=== PATIENT | female | born 1955 | race Caucasian/White ===

== ENCOUNTER 2016-04-30 09:45 | Inpatient (IN) | payer BC ==
[~2016-04-30] VITALS: Ht 170.2 cm; Wt 79.0 kg
[2016-05-01] MEDS ORDERED: NEXI20CA PO (15:53)
[2016-05-01] MEDS ORDERED: CALC500T42 PO (16:11)
[2016-05-01] MEDS ORDERED: VITATAB11 PO (16:11)
[2016-05-01] MEDS ORDERED: TRAZ50TA12 PO (16:11)
[2016-05-01] MEDS ORDERED: MAGN250T2 PO (16:11)
[2016-05-01] MEDS ORDERED: MULT-135 PO (16:11)
[2016-05-01] MEDS ORDERED: [UNRECOGNIZED DRUG - OTHER] PO (16:11)
--- NOTE | 2016-05-04 09:09 | MH ---
cc: ANTONIO SINGH MD DATE OF ADMISSION: 05/06/2016 ADMITTING DIAGNOSIS Osteoarthritis of the right hip, pain right hip, gait disturbance. HISTORY OF PRESENT ILLNESS The patient is a 60-year-old white female who has experienced at least a one-year history of pain involving her right hip. She had originally noted the abrupt onset of pain generalized about the hip and groin area within the preceding year unrelated to injury or unusual activity. During this interval of time, she had conformed to conservative management utilizing Advil and applying heat neither of which afforded her any significant improvement of her symptoms. She became progressively more symptomatic with pain that began to interfere with all weightbearing activities. She presented to the undersigned physician in May of this past year and at that time her x-ray studies revealed obvious degenerative changes with pronounced narrowing about the superior aspect of the joint for which findings and treatment options were reviewed. The patient elected to continue with conservative management at that time. She was prescribed tramadol for pain relief and thereafter followed on an outpatient basis. Additional medications later included diclofenac during which time the patient noted residual symptoms about her right hip for which she was having difficulty conforming to ambulatory activities. She returned to the office in November of this past year reporting that she had been kayaking as part of her exercise activities that tended to aggravate her hip symptoms. She was treated with a Kenalog injection and a Medrol Dosepak but unfortunately became increasingly more symptomatic with pain with the passage of time. She returned to the office more recently indicating she was obviously incapacitated with regards to all forms of weightbearing activities. Her x-ray studies revealed severe degenerative changes with subtotal obliteration of the joint space. Findings and treatment options were reviewed. The pros and cons of continuing with conservative management versus operative intervention that would involve a total hip arthroplasty were outlined in detail. Emphasis was made regarding the fact that the decision to proceed with surgery would be left entirely to the patient's discretion. She readily admitted that she had progressed to a point in time where she was ready to proceed with such treatment, and in compliance with her wishes she is currently being admitted in order that total hip replacement be accomplished. PAST MEDICAL HISTORY Her past medical history, hospitalizations and surgeries have included previous left total hip arthroplasty, tonsillectomy, excision of uterine fibroids, and surgical stabilization of the left ankle fracture. The patient denies active medical illnesses. MEDICATIONS Her current medications include - 1. Tramadol for pain relief. 2. Trazodone 50 mg at bedtime. 3. A multivitamin tablet. 4. B complex. 5. Advil. 6. Calcium 500 mg twice a day. 7. Magnesium 250 mg twice a day. 8. Colax an herbal supplement that she takes three times daily. ALLERGIES THE PATIENT DENIES ANY KNOWN DRUG ALLERGIES. REVIEW OF SYSTEMS She has contact lenses. Denies headache, seizure or syncope. No sinus congestion or epistaxis. Auditory acuity intact. No tinnitus. No bleeding gums or dysphagia. Denies cough, shortness of breath, upper respiratory infection, pneumonia or tuberculosis. No angina or heart disease. Her appetite is good. Bowel movements are regular. No hepatitis, gallbladder disease, ulcers or hemorrhoids. No urinary tract infection. No kidney stones. Fracture of the left ankle as described. No psychiatric illness. Her remaining review of systems is unremarkable and noncontributory. FAMILY HISTORY The patient has been for five years. She has no children. Her family history is otherwise positive for hypertension, diabetes and heart disease. SOCIAL HISTORY The patient completed a college education. She is employed in the [employer] industry. She denies active use of tobacco for the past 30 years but had been approximately a 15 pack-year user prior to that time. Ethanol consumption on a social basis. PHYSICAL EXAMINATION Height 5 feet 7 inches. Weight 180 pounds. GENERAL: An alert, oriented and responsive 60-year-old white female who sits quietly upon the examination table with mild distress as related to her right hip. HEAD, EARS, EYES, NOSE AND THROAT: Pupils are equally round and reactive to light. Extraocular movements full. Sclerae are clear. External nares clear. External auditory canals clear. Dental intact. Mucous membranes pink and moist. Pharynx clear. NECK: Supple. Active range of motion without appreciable pain. Carotid pulse palpable bilaterally. Trachea midline. Thyroid without enlargement. LUNGS: Clear to auscultation and percussion. No CVA tenderness. No discomfort throughout the dorsolumbar spine. HEART: Regular rhythm. No murmur or gallop. ABDOMEN: Abdomen is soft, nontender. Bowel sounds present. PELVIC: Per primary care physician. EXTREMITIES: Right hip: There is no localizing tenderness to palpation. There is restricted mobility of the hip joint in all ranges assessed with pain at the extremes of motion. Straight-leg raising is negative at 80 degrees. Erik sign is positive. Pronounced antalgic gait. NEUROLOGIC: Cranial nerves II through XII grossly intact. IMPRESSION Severe osteoarthritis of the right hip, pain right hip, gait disturbance. PLAN Right total hip arthroplasty. The nature of the planned surgical procedure, the potential complications and risks associated, the expectations of surgery and the consent form were thoroughly reviewed with the patient prior to her admission to the hospital. Radha has indicated her full understanding regarding all of the above and given consent to proceed with treatment as outlined. Medical evaluation and clearance for surgery will be completed by her primary care physician Dr. Joseph Saenz. MD GERALDO Manning/BJF /5:11 PM /9:08 AM
[2016-05-06] MEDS ORDERED: POVIDONE IODINE 7.5% SCRUB 118 ML BOTTLE TOP SCH (05:45)
[2016-05-06] MEDS ORDERED: ceFAZolin 2 GM PREMIX 50 ML IV SCH (05:45)
[2016-05-06] MEDS ORDERED: METOPROLOL TARTRATE 25 MG TAB PO PRN (05:45)
[2016-05-06] MEDS ORDERED: SODIUM CHLORID 0.9% 500 ML IV SCH (05:45)
[2016-05-06] MEDS ORDERED: INSULIN HUMAN REGULAR 1,000 UNITS/10 ML VIAL SQ PRN (05:45)
[2016-05-06] MEDS ORDERED: LACTATED RINGER'S 1000 ML IV SCH (05:45)
[2016-05-06] MEDS ORDERED: TRANEXAMIC ACID 1 GM POST-OP IV SCH ×2 (05:45)
[2016-05-06] MEDS ORDERED: TRANEXAMIC ACID 1 GM PRIOR TO PROCEDURE IV SCH ×2 (05:45)
[2016-05-06] MEDS ORDERED: IBUP200T2 PO (05:58)
[2016-05-06] MEDS ORDERED: TRAM50TA PO (05:58)
[2016-05-06] MEDS ORDERED: ACET-703 PO (05:58)
[2016-05-06] MEDS ORDERED: CALC1TAB12 PO (05:58)
[2016-05-06 05:59] VITALS: BP 143/90; PULSE 80; RESP 20; TEMP 98.7; O2SAT 96
--- NOTE | 2016-05-06 06:23 | RADRPT ---
EXAM DATE/TIME: 05/06/2016 05:47 [facility] COMPARISON: No previous studies available for comparison. INDICATIONS : Evaluate for pneumonia, pneumothorax, or any communicable disease. Pre op right hip. MEDICAL HISTORY : None. SURGICAL HISTORY : None. ENCOUNTER: Initial ACUITY: 1 day PAIN SCORE: 0/10 LOCATION: Bilateral chest FINDINGS: A single view of the chest demonstrates the lungs to be symmetrically aerated without evidence of mas s, infiltrate or effusion. The cardiomediastinal contours are unremarkable. Osseous structures are intact. CONCLUSION: No acute disease. Compa Alvarez MD on May 06, 2016 at 6:22 Board Certified Radiologist. This report was verified electronically.
[2016-05-06] MEDS ORDERED: ceFAZolin INJ 1,000 MG VIAL ONE (06:31)
[2016-05-06] MEDS ORDERED: HYDROmorphone HCL PF 2 MG/ML VIAL ONE (08:36)
[2016-05-06] MEDS ORDERED: fentaNYL CITRATE 250 MCG/5 ML AMP ONE (09:40)
[2016-05-06] MEDS ORDERED: SODIUM CHLORIDE 0.9% FLUSH 5 ML FLUSH IVF PRN (09:45)
[2016-05-06] MEDS ORDERED: ACETAMINOPHEN/HYDROcodone 325 MG/5 MG TAB PO PRN (09:45)
[2016-05-06] MEDS ORDERED: ZOLPIDEM TARTRATE 5 MG TAB PO PRN (09:45)
[2016-05-06] MEDS ORDERED: Post-op Orders (for Pharmacy) MISC XX ONE (09:45)
[2016-05-06] MEDS ORDERED: BISACODYL 10 MG SUPP PR PRN (09:45)
[2016-05-06] MEDS ORDERED: diphenhydrAMINE HCL 25 MG CAP PO PRN (09:45)
[2016-05-06] MEDS ORDERED: NALOXONE HCL 0.4 MG/ML AMP IV PRN (09:45)
[2016-05-06] MEDS ORDERED: ACETAMINOPHEN 325 MG TAB PO PRN (09:45)
[2016-05-06] MEDS ORDERED: PROMETHAZINE INJ 25 MG/ML VIAL IM PRN (09:45)
[2016-05-06] MEDS ORDERED: ONDANSETRON HCL 4 MG/2 ML VIAL IVP PRN (09:45)
[2016-05-06] MEDS ORDERED: DOCUSATE SODIUM 100 MG CAP PO PRN (09:45)
[2016-05-06] MEDS ORDERED: TRANEXAMIC ACID INJ 1,000 MG in SODIUM CHLORIDE 0.9% INJ 100 ML IV SCH (09:45)
[2016-05-06] MEDS ORDERED: *morphine SULFATE 8 MG/ML PERIprocedure ONLY ONE ×2 (09:53→10:08)
[2016-05-06] MEDS: DEXT 5%-NACL 0.45% 1000 ML INJ 1,000 ML IV SCH ×2 (11:00→17:53)
--- NOTE | 2016-05-06 11:03 | RADRPT ---
EXAM DATE/TIME: 05/06/2016 10:00 [facility] COMPARISON: No previous studies available for comparison. INDICATIONS: Post op right hip surgery. MEDICAL HISTORY: None. SURGICAL HISTORY: None. ENCOUNTER: Initial ACUITY: 1 day PAIN SCORE: 10/10 LOCATION: Right hip FINDINGS: The patient is status post right total hip arthroplasty with prosthesis in good position. CONCLUSION: Status post right total hip arthroplasty with prosthesis in good position. lEroy Abel MD on May 06, 2016 at 10:49 Board Certified Radiologist. This report was verified electronically.
[2016-05-06] MEDS: MORPHINE SULFATE 30 MG/30 ML PCA IV SCH ×3 (11:34→21:11)
--- NOTE | 2016-05-06 11:42 | MP ---
cc: ANTONIO HERNANDEZ DATE OF SURGERY 05/06/2016 PREOPERATIVE DIAGNOSIS Osteoarthritis of the right hip, pain right hip, gait disturbance. POSTOPERATIVE DIAGNOSIS Osteoarthritis of the right hip, pain right hip, gait disturbance. PROCEDURE Right total hip arthroplasty SURGEON Antonio Hernandez MD ANESTHESIA General endotracheal INDICATIONS The patient is a 60-year-old white female who experienced at least a one-year history of pain involving her right hip. She had noted the abrupt onset of generalized pain involving the hip and groin area within the preceding year unrelated to injury or unusual activity. During this interval of time, she had conformed to conservative management utilizing Advil and applying heat neither of which afforded her any significant improvement. She became progressively more symptomatic with pain that began to interfere with all weightbearing activities. She presented to the undersigned physician in May of this past year and at that time x-ray studies revealed obvious degenerative changes with pronounced narrowing about the superior aspect of the joint for which findings and treatment options were reviewed. At that time, the patient elected to continue with conservative management. She was prescribed Tramadol for pain relief and thereafter followed on an outpatient basis. Additional medications included Diclofenac during which time the patient did experience residual pain about her right hip for which she was having difficulty conforming to all ambulatory activities. She was trying to exercise under her own supervision. She returned to the office in November of this past year reporting that she had been kayaking as part of her exercise program, but it tended to aggravated her symptoms. She was treated with a Kenalog injection and a Medrol Dosepak, but unfortunately became increasingly more symptomatic with pain. She returned to the office in the recent past indicating that she was obviously incapacitated with all forms of weightbearing activities. Her current x-ray studies revealed severe degenerative changes with subtotal obliteration of the joint space. Findings and treatment options were reviewed. The pros and cons of continuing with additional conservative management versus proceeding with operative intervention involving total hip arthroplasty were outlined in detail. Emphasis was made regarding the fact that the decision to proceed with surgery would be left entirely to the patient's discretion. She readily admitted that her symptoms had progressed to a point in time where she was ready to proceed with such treatment and in compliance with her wishes, she was scheduled for admission at this time in order that total hip replacement be completed. FORMAT Following the induction of satisfactory general anesthesia by endotracheal intubation as completed per the Department of Anesthesia, the patient was positioned upon the operating table in a left lateral decubitus fashion. The right hip and lower extremity proper were isolated with a U drape thereafter being prepped with Betadine solution and draped into a sterile field in the routine manner. Prior to initiation of the actual procedure the standard time-out protocol was completed. All parameters were appropriately addressed and confirmed by operating room personnel. A standard posterolateral approach to the hip was initiated through a sharp skin incision and developed underlying subcutaneous tissue with hemostasis maintained by electrocautery. By deepening dissection, the fascia overlying the gluteus musculature was exposed. The underlying gluteal fibers were divided with the Bovie on cutting current. Progressive dissection facilitated exposure of the short external rotator structures. The pyriformis tendon was utilized as an anatomical landmark and division of these structures was completed in a superior to inferior orientation and reflected medially exposing the posterior capsule. The sciatic nerve was protected. An L-shaped capsulotomy was accomplished in which a posterior dislocation of the femoral head was completed. Examination revealed severe degenerative changes with marginal hypertrophic bony reaction and complete erosion of articular cartilage from the weightbearing surface of the femoral head with underlying subchondral bone exposed. The femoral template was positioned for alignment orientation. The neck was scored and thereafter divided with power saw, the amputated segment being passed to the back table as surgical specimen. Attention was initially directed to the proximal femur. Cancellus bone was harvested. The tapered reamer was inserted for alignment orientation. Sequential rasping and broaching was accomplished from 7 through 10 mm, the 10 mm stem was determined to be a favorable fit. The trial components being removed, attention was redirected to the acetabulum. The labrum and reactive soft tissue were sharply excised. Progressive reaming was accomplished from 48-54 mm. The 54 trial shell was positioned and determined to be satisfactory. With all trial components being removed, the wound was copiously irrigated with pulsating antibiotic solution. Hemostasis maintained by electrocautery. The acetabulum was dried and thereafter a 54 mm ring lock acetabular shell was firmly seated in approximately 45 degrees inclination to the horizontal and slight anteversion. A single 25 mm 6.5 cancellous screw was inserted superiorly to augment fixation. The permanent high wall acetabular liner was affixed to the acetabular shell and thereafter the size 10 trial femoral broach was repositioned and a trial reduction followed utilizing both a -6 and -3 mm neck length adapter. The -3 sizing was determined to be the more favorable fit. The hip was flexed to 90 degrees and internally rotated to 45 degrees with stability of the hip joint being maintained. Open dislocation completed. Trial femoral components being removed, the canal was thoroughly irrigated, not dried and thereafter a size 10 standard femoral stem Echo biometric configuration with collarless configuration was firmly seated into the canal and to this a 36 mm ceramic head with -3 mm neck length adapter was attached and open reduction completed. A repeat range of motion noted stability as previously described. Final irrigation was accomplished. Hemostasis maintained by electrocautery. The wound was thoroughly irrigated with pulsating antibiotic solution. Hemostasis being maintained by electrocautery. The posterior capsule was repaired with 0 Vicryl suture. Pyriformis tendon and short external rotator structures were reapproximated in a similar manner. Hemovac drain tubes were inserted through superior stab wounds. The fascia of the gluteus musculature was reapproximated with a running 0 Vicryl suture. The remaining portion of the wound was closed in layers in the routine manner. Skin margins being reapproximated with a running subcuticular 3-0 Vicryl suture over which Steri-Strips were applied. Xeroform gauze and a bulky dry sterile dressing were placed. The patient was repositioned into a supine orientation where an abduction splint was attached. Anesthesia was discontinued. She was thereafter transferred to a hospital bed and returned to the recovery room in satisfactory condition having tolerated her operative procedure well. Estimated blood loss was approximately 300 cc as determined per anesthesia. All implants were of the [employer] nanoscience technician. MD GERALDO Manning/ONEYDA /9:32 AM /11:22 AM
[2016-05-06 11:50] VITALS: BP 132/67; PULSE 80; RESP 16; TEMP 96.7; O2SAT 96
[2016-05-06 12:00] VITALS: BP 106/56; PULSE 71; RESP 17; TEMP 95.9; O2SAT 97
[2016-05-06] MEDS ORDERED: ACETAMINOPHEN 1000 MG/100 ML VIAL IV ONE (12:00)
[2016-05-06] MEDS ORDERED: LACTATED RINGER'S 1000 ML INJ 1,000 ML IV ONE (12:00)
[2016-05-06] MEDS ORDERED: NEOSTIGMINE 3 MG/3 ML SYR IV ONE (12:00)
[2016-05-06] MEDS ORDERED: PROPOFOL 200 MG/20 ML AMP IV ONE (12:00)
[2016-05-06] MEDS ORDERED: ePHEDrine/NS 50 MG/5 ML SYR IV ONE (12:00)
[2016-05-06] MEDS ORDERED: ONDANSETRON HCL 4 MG/2 ML VIAL IV PUSH ONE (12:00)
[2016-05-06] MEDS ORDERED: DO NOT ADM ANY ANTICOAGULANT DRUGS XX PRN (12:15)
[2016-05-06] MEDS: PCA - TOTAL MG MORPHINE DELIVERED PER SHIFT SCH ×2 (14:00→21:12)
--- NOTE | 2016-05-06 14:57 | PD.CONS ---
HPI Service [facility] Consult Requested By Orthopedic surgery. Reason for Consult Medical management. Primary Care Physician Joseph Saenz MD Diagnoses: (1) Osteoarthritis of right hip (2) GERD (gastroesophageal reflux disease) (3) Depression History of Present Illness Ms. Noyola is a pleasant 60 year with a history of right hip osteoarthritis, underwent elective right total hip arthroplasty on 05/06/2016. She reports about a year long right hip pain. She has tried various conservative non-surgical management. Post surgery, patient is doing well. She reports good pain control. Denies any chest pain, shortness of breath, fever, chills. Denies any changes in her bowel or bladder habits. Review of Systems ROS Limitations: Other (Negative except as noted in the HPI. ) Past Family Social History Allergies: Coded Allergies: No Known Allergies (Unverified , 05/06/16) Past Medical History Depression, GERD, osteoarthritis. Past Surgical History Left total hip replacement, Tonsillectomy, Uterine fibroid surgery. Active Ordered Medications Current Medications Lactated Ringer's 1,000 ml @ 30 mls/hr Q24H IV Last administered on 05/06/16t 05:45; Start 05/06/16 at 05:45; Stop 05/06/16 at 10:54; Status DC Sodium Chloride (NS 500 ml Inj) 500 ml @ 30 mls/hr [id number] IV ; Start 05/06/16 at 05:45; Stop 05/06/16 at 10:54; Status DC Insulin Human Regular (NovoLIN R INJ) See Protocol Table ... UNSCH X1 PRN SQ SEE PROTOCOL; Start 05/06/16 at 05:45; Stop 05/07/16 at 05:44 Metoprolol Tartrate (Lopressor) 25 mg UNSCH X1 PRN PO SEE LABEL COMMENTS; Start 05/06/16 at 05:45; Stop 05/07/16 at 05:44 Povidone Iodine 1 applic 1 applic ONCE TOP ; Start 05/06/16 at 05:45; Stop 05/09 at 05:44 Cefazolin Sodium/ Dextrose 50 ml @ 100 mls/hr [employer] IV Last administered on 05/06/16t 06:15; Start 05/06/16 at 05:45; Stop 05/09/16 at 05:44 Tranexamic Acid 1000 mg/Sodium Chloride 110 ml @ 220 mls/hr ONCE IV Last administered on 05/06/16 06:22; Start 05/06/16 at 05:45; Stop 05/06/16 at 16:00 ; Status DC Tranexamic Acid/ Sodium Chloride (Cyklokapron Inj/ NS Inj) 110 ml @ 220 mls/hr ONCE IV Last administered on 05/06/16 09:30; Start 05/06/16 at 05:45; Stop 03/12 at 16:00; Status DC Cefazolin Sodium (Ancef Inj) 2,000 mg STK-MED ONCE .ROUTE Last administered on 05/06/16 07:33; Start 05/06/16 at 06:31; Stop 05/06/16 at 06:36; Status DC Hydromorphone HCl (Dilaudid Pf Inj) 2 mg STK-MED ONCE .ROUTE ; Start 05/06/16 at 08:36; Stop 05/06/16 at 08:47; Status DC Fentanyl Citrate (fentaNYL INJ) 200 mcg STK-MED ONCE .ROUTE ; Start 05/06/16 at 09:40; Stop 05/06/16 at 09:41; Status DC Fentanyl Citrate 250 mcg 250 mcg STK-MED ONCE .ROUTE ; Start 05/06/16 at 09:40; Stop 05/06/16 at 09:41; Status DC Dextrose/Sodium Chloride (D5W-1/2 NS 1000 ml Inj) 1,000 ml @ 125 mls/hr Q8H IV Last administered on 05/06/16 17:53; Start 05/06/16 at 11:00 IV Flush (NS Flush) 2 ml UNSCH PRN IVF FLUSH AFTER USING IV ACCESS; Start 05/06 at 09:45 IV Flush 2 ml 2 ml BID IVF Last administered on 05/06/16 21:13; Start at 21:00 Cefazolin Sodium/ Sodium Chloride (Ancef Inj/NS Inj) 100 ml @ 200 mls/hr Q6H IV Last administered on 05/06/16 17:29; Start 05/06/16 at 12:00; Stop at 00:29 Miscellaneous Information (Post-op Orders (for Pharmacy)) STAT ONCE XX ; Start 05/06/16 at 09:45; Stop 05/06/16 at 10:53; Status DC Rivaroxaban (Xarelto) 10 mg Q24H PO ; Start 05/07/16 at 09:00 Miscellaneous Medication ([facility] Information) ONCE ONCE XX ; Start at 12:00; Stop 05/08/16 at 12:01 Acetaminophen/ Hydrocodone Bitart (Trimble 5-325 Mg) 1 tab Q4H PRN PO PAIN LESS THAN 5 ON SCALE; Start 05/06/16 at 09:45 Acetaminophen/ Hydrocodone Bitart (Trimble 5-325 Mg) 2 tab Q4H PRN PO PAIN SCALE 5 TO 10; Start 05/06/16 at 09:45 Acetaminophen 650 mg 650 mg Q6H PRN PO FEVER > 101; Start 05/06/16 at 09:45 Tranexamic Acid/ Sodium Chloride (Cyklokapron Inj/ NS Inj) 110 ml @ 200 mls/hr UNSCH IV ; Start 05/06/16 at 09:45; Stop 05/06/16 at 10:17; Status UNV Ondansetron HCl (Zofran Inj) 4 mg Q6H PRN IVP NAUSEA OR VOMITING; Start at 09:45 Docusate Sodium (Colace) 100 mg BID PRN PO CONSTIPATION; Start 05/06/16 at 09: 45 Zolpidem Tartrate (Ambien) 5 mg HS PRN PO SLEEP; Start 05/06/16 at 09:45 Bisacodyl (Dulcolax Supp) 10 mg DAILY PRN [place] CONSTIPATION; Start 05/06/16 at 09 :45 Magnesium Hydroxide (Milk Of Magnesia Liq) 30 ml DAILY PRN PO CONSTIPATION; Start 05/06/16 at 09:45 Naloxone HCl (Narcan Inj) 0.4 mg UNSCH PRN IV RESPIRATORY RATE LESS THAN 10; Start 05/06/16 at 09:45 Diphenhydramine HCl (Benadryl) 25 mg Q6H PRN PO ITCHING; Start 05/06/16 at 09: 45 Morphine Sulfate (Morphine 1 Mg/ ml [employer]) 30 mg UNSCH IV Last administered on t 21:11; Start 05/06/16 at 11:00; Stop 05/08/16 at 12:00 [employer] Dosage Infused (Pha) 1 Q8HR .XX Last administered on 05/06/16 21:12; Start 05/06/16 at 14:00; Stop 05/08/16 at 15:00 Promethazine HCl (Phenergan Inj) 25 mg Q6H PRN IM NAUSEA OR VOMITING; Start 03/12 at 09:45 Morphine Sulfate (*morphine INJ PERIprocedure ONLY) 8 mg STK-MED ONCE .ROUTE Last administered on 05/06/16 09:53; Start 05/06/16 at 09:53; Stop 05/06/16 at 09:54; Status DC Morphine Sulfate (*morphine INJ PERIprocedure ONLY) 8 mg STK-MED ONCE .ROUTE Last administered on 05/06/16 10:08; Start 05/06/16 at 10:08; Stop 05/06/16 at 10:10; Status DC Miscellaneous Information ALL NURSING DEPARTME... UNSCH PRN XX SEE LABEL COMMENTS; Start 05/06/16 at 12:15; Stop 05/07/16 at 12:14 Family History Family history significant for hypertension, diabetes, hyperlipidemia. Social History Patient quit smoking more than 15 years ago. Physical Exam Vital Signs Vital Signs Date Time Temp Pulse Resp B/P Pulse Ox O2 Delivery O2 Flow Rate FiO2 05/06/16 12:00 95.9 71 17 106/56 97 05/06/16 11:34 12 05/06/16 10:45 70 12 134/71 98 Room Air 05/06/16 10:30 69 12 126/70 98 Room Air 05/06/16 10:15 71 12 127/81 98 Nasal Cannula 2 05/06/16 10:00 78 12 135/84 100 Nasal Cannula 2 05/06/16 09:45 75 12 131/63 97 Nasal Cannula 3 05/06/16 09:34 97.5 74 12 116/63 98 Nasal Cannula 3 05/06/16 05:59 98.7 80 20 143/90 96 Physical Exam GENERAL: This is a well-nourished, well-developed patient, in no apparent distress. SKIN: No rashes, ecchymoses or lesions. Warm and dry. HEAD: Atraumatic. Normocephalic. No temporal or scalp tenderness. EYES: Pupils equal round and reactive. No injection or drainage. ENT: Nose without bleeding, purulent drainage or septal hematoma. Airway patent. NECK: Trachea midline. No lymphadenopathy. Supple, nontender, no meningeal signs. CARDIOVASCULAR: Regular rate and rhythm without murmurs, gallops, or rubs. No JVD. RESPIRATORY: Clear to auscultation. Breath sounds equal bilaterally. No wheezes , rales, or rhonchi. GASTROINTESTINAL: Abdomen soft, non-tender, nondistended. No guarding. MUSCULOSKELETAL: Extremities without clubbing, cyanosis, or edema. s/p right hip arthroplasty. Moves all toes. NEUROLOGICAL: Awake and alert. Cranial nerves II through XII intact. No focal neurological deficits. Normal speech. Laboratory Laboratory Tests Test 05/06/16 05:45 Blood Type O POSITIVE Antibody Screen NEGATIVE Blood Bank Comment Imaging Last Impressions Hip X-Ray 05/06/16 0939 Signed Impressions: Service Date/Time: Friday, May 06, 2016 10:00 - CONCLUSION: Status post right total hip arthroplasty with prosthesis in good position. Elroy Abel MD Chest X-Ray 05/06/16 0000 Signed Impressions: Service Date/Time: Friday, May 06, 2016 05:47 - CONCLUSION: No acute disease. Compa Alvarez MD Assessment and Plan Problem List: (1) Osteoarthritis of right hip ICD Code: M16.11 Status: Acute (2) GERD (gastroesophageal reflux disease) ICD Code: K21.9 Status: Acute (3) Depression ICD Code: F32.9 Status: Acute Assessment and Plan Ms. Noyola, 60 underwent elective right total hip arthroplasty on 05/06/2016. Patient is currently doing well. Patient is hemodynamically stable. Afebrile. - Right hip osteoarthritis - s/p right total hip arthroplasty - Continue Trimble, morphine [employer] for pain. - Dulcolax supp, Colace, Milk of Mag PRN for bowel regimen. - Xarelto 10mg Q24hrs starting 05/07/2016. - GERD - will continue PPI. - Depression - Continue Trazodone on discharge. Full code. Xarelto starting 05/07/2016. Thank you for the consult. We will continue to follow this patient with you. Jadon Tena DO May 06, 2016 14:57
[2016-05-06 16:00] VITALS: BP 142/75; PULSE 78; RESP 18; TEMP 96.2; O2SAT 97
[2016-05-06 20:00] VITALS: BP 124/74; PULSE 82; RESP 17; TEMP 96.1; O2SAT 92
[2016-05-06] MEDS: SODIUM CHLORIDE 0.9% FLUSH 5 ML FLUSH IVF SCH (21:13)
[2016-05-06 22:02] VITALS: O2SAT 97
[2016-05-07] MEDS: DEXT 5%-NACL 0.45% 1000 ML INJ 1,000 ML IV SCH ×3 (02:33→17:09)
[2016-05-07 04:10] VITALS: BP 119/75; PULSE 104; RESP 16; TEMP 98.2; O2SAT 96
[2016-05-07 05:44] LABS: HEMATOCRIT 34.9 % (35.0-46.0); REVIEW FLAG FINAL
[2016-05-07] MEDS: PCA - TOTAL MG MORPHINE DELIVERED PER SHIFT SCH ×3 (06:00→22:00)
[2016-05-07] MEDS ORDERED: ASPI325T PO (06:29)
[2016-05-07] MEDS ORDERED: HYDR-3516 PO (06:29)
--- NOTE | 2016-05-07 06:31 | HHI.FF ---
Face to Face Verification Diagnosis: (1) Osteoarthritis of right hip Physical Therapy Gait training Hip: Total hip, Protocol: Right, Abduction pillow while in bed Right LE Weight Bearing: WB as tolerated Right LE Range of Motion: Active ROM Nursing Dressing Changes: Daily dressing change I have seen patient Radha Noyola on 05/07/16. My clinical findings support the need for the requested home health care services because: Limited ability to care for self High risk of falls I certify that my clinical findings support that this patient is homebound because: Post-op weakness Unsteady gait/balance Unsafe to leave home unassisted Jimenez Hernandez MD May 07, 2016 06:31
[2016-05-07] MEDS ORDERED: WALKER WHEELS/F1 MIS (06:33)
[2016-05-07] MEDS ORDERED: BEDSIDE COMMODE1 MI1 (06:33)
[2016-05-07] MEDS: ACETAMINOPHEN/HYDROcodone 325 MG/5 MG TAB PO PRN (06:38)
[2016-05-07] MEDS: MORPHINE SULFATE 30 MG/30 ML PCA IV SCH ×2 (06:46→20:26)
[2016-05-07 08:00] VITALS: BP 112/69; PULSE 88; RESP 18; TEMP 98.7; O2SAT 95
[2016-05-07] MEDS: SODIUM CHLORIDE 0.9% FLUSH 5 ML FLUSH IVF SCH ×2 (09:00→19:48)
[2016-05-07] MEDS: PANTOPRAZOLE SOD 20 MG DELAYED RELEASE TAB PO SCH (09:38)
[2016-05-07] MEDS: RIVAROXABAN 10 MG TAB PO SCH (09:38)
--- NOTE | 2016-05-07 10:37 | HHI.PR ---
Subjective Remarks Follow-up for right total hip arthroplasty. Patient is currently doing well. Denies any acute concerns. Hemodynamically stable. Objective Vitals Vital Signs Date Time Temp Pulse Resp B/P Pulse Ox O2 Delivery O2 Flow Rate FiO2 05/07/16 08:00 98.7 88 18 112/69 95 05/07/16 06:46 17 05/07/16 06:00 18 05/07/16 04:10 98.2 104 16 119/75 96 05/06/16 22:02 97 05/06/16 21:12 17 05/06/16 21:11 18 05/06/16 20:00 96.1 82 17 124/74 92 05/06/16 16:00 96.2 78 18 142/75 97 05/06/16 12:00 95.9 71 17 106/56 97 05/06/16 11:50 96.7 80 16 132/67 96 05/06/16 11:34 12 05/06/16 11:30 97.5 80 12 124/70 94 Room Air 05/06/16 11:15 72 12 112/70 95 Room Air 05/06/16 11:00 70 12 131/67 96 Room Air 05/06/16 10:45 70 12 134/71 98 Room Air I/O 05/06/16 05/06/16 05/06/16 05/07/16 05/07/16 05/07/16 07:00 15:00 23:00 07:00 15:00 23:00 Intake Total 1980 ml 240 ml 920 ml Output Total 500 ml 880 ml Balance 1480 ml -640 ml 920 ml Intake Oral 480 ml 240 ml 920 ml Other 1500 ml Output Urine Total 200 ml 700 ml Drainage Total 180 ml Estimated Blood Loss 300 ml # Voids 1 4 # Bowel Movements 0 0 0 Result Diagram: 05/07/16 0503 Imaging Last Impressions Hip X-Ray 05/06/16 0939 Signed Impressions: Service Date/Time: Friday, May 06, 2016 10:00 - CONCLUSION: Status post right total hip arthroplasty with prosthesis in good position. Elroy Abel MD Chest X-Ray 05/06/16 0000 Signed Impressions: Service Date/Time: Friday, May 06, 2016 05:47 - CONCLUSION: No acute disease. Compa Alvarez MD Objective Remarks GENERAL: Alert, oriented 3. No acute distress. SKIN: Warm and dry. HEAD: Normocephalic. EYES: No scleral icterus. No injection or drainage. NECK: Supple, trachea midline. No JVD or lymphadenopathy. CARDIOVASCULAR: Regular rate and rhythm without murmurs, gallops, or rubs. RESPIRATORY: Breath sounds equal bilaterally. No accessory muscle use. GASTROINTESTINAL: Abdomen soft, non-tender, nondistended. MUSCULOSKELETAL: No cyanosis, or edema. Status post right ALBINA. Able to move all toes. BACK: Nontender without obvious deformity. No CVA tenderness. Procedures Right total hip arthroplasty 05/06/2016 A/P Problem List: (1) Osteoarthritis of right hip ICD Code: M16.11 Status: Acute (2) GERD (gastroesophageal reflux disease) ICD Code: K21.9 Status: Acute (3) Depression ICD Code: F32.9 Status: Acute Assessment and Plan Ms. Noyola, 60 underwent elective right total hip arthroplasty on 05/06/2016. Patient is currently doing well. Patient is hemodynamically stable. Afebrile. 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 - Dulcolax supp, Colace, Milk of Mag PRN for bowel regimen. - Xarelto 10mg Q24hrs starting 05/07/2016. - Encouraged patient to use incentive spirometry. - GERD - will continue PPI. - Depression - Continue Trazodone on discharge. Full code. Xarelto starting 05/07/2016. Jadon Tena DO May 07, 2016 10:36 am
[2016-05-07 11:35] VITALS: BP 113/71; PULSE 87; RESP 18; TEMP 98.3; O2SAT 94
[2016-05-07 15:48] VITALS: BP 143/78; PULSE 89; RESP 18; TEMP 99.1; O2SAT 96
[2016-05-07 20:05] VITALS: BP 139/77; PULSE 73; RESP 17; TEMP 97.8; O2SAT 96
[2016-05-08] VITALS (8 sets, daily range): BP systolic 113–138; BP diastolic 67–77; PULSE 86–91; RESP 16–17; TEMP 96.7–99.6; O2SAT 94–99
[2016-05-08] MEDS: DEXT 5%-NACL 0.45% 1000 ML INJ 1,000 ML IV SCH ×3 (03:00→19:00)
[2016-05-08] MEDS: PCA - TOTAL MG MORPHINE DELIVERED PER SHIFT SCH ×2 (06:00→14:00)
[2016-05-08] MEDS: SODIUM CHLORIDE 0.9% FLUSH 5 ML FLUSH IVF SCH ×2 (09:00→21:00)
[2016-05-08] MEDS: PANTOPRAZOLE SOD 20 MG DELAYED RELEASE TAB PO SCH (09:25)
[2016-05-08] MEDS: RIVAROXABAN 10 MG TAB PO SCH (09:26)
--- NOTE | 2016-05-08 11:56 | HHI.PR ---
Subjective Remarks Follow-up for right total hip arthroplasty. No acute concerns. Ambulating some. No fever, chills. Objective Vitals Vital Signs Date Time Temp Pulse Resp B/P Pulse Ox O2 Delivery O2 Flow Rate FiO2 05/08/16 09:50 96 05/08/16 08:00 98.9 89 16 134/71 94 05/08/16 06:00 20 05/08/16 04:03 98.0 86 16 117/71 96 05/08/16 00:06 98.9 88 16 129/77 97 05/07/16 22:00 16 05/07/16 20:26 20 05/07/16 20:05 97.8 73 17 139/77 96 05/07/16 18:12 21 05/07/16 15:48 99.1 89 18 143/78 96 05/07/16 13:07 17 I/O 05/07/16 05/07/16 05/07/16 05/08/16 05/08/16 05/08/16 07:00 15:00 23:00 07:00 15:00 23:00 Intake Total 3219 ml 480 ml 360 ml Output Total 25 ml 25 ml 20 ml Balance 3194 ml 455 ml 340 ml Intake Oral 1160 ml 480 ml 360 ml IV Total 2059 ml Drainage Total 25 ml 25 ml 20 ml # Voids 8 4 4 # Bowel Movements 0 0 0 Result Diagram: 05/07/16 0503 Objective Remarks GENERAL: Alert, oriented 3. No acute distress. SKIN: Warm and dry. HEAD: Normocephalic. EYES: No scleral icterus. No injection or drainage. NECK: Supple, trachea midline. No JVD or lymphadenopathy. CARDIOVASCULAR: Regular rate and rhythm without murmurs, gallops, or rubs. RESPIRATORY: Breath sounds equal bilaterally. No accessory muscle use. GASTROINTESTINAL: Abdomen soft, non-tender, nondistended. MUSCULOSKELETAL: No cyanosis, or edema. Status post right ALBINA. Able to move all toes. BACK: Nontender without obvious deformity. No CVA tenderness. Procedures Right total hip arthroplasty 05/06/2016 A/P Problem List: (1) Osteoarthritis of right hip ICD Code: M16.11 Status: Acute (2) GERD (gastroesophageal reflux disease) ICD Code: K21.9 Status: Acute (3) Depression ICD Code: F32.9 Status: Acute Assessment and Plan Ms. Noyola, 60 underwent elective right total hip arthroplasty on 05/06/2016. Patient is currently doing well. Patient is hemodynamically stable. Afebrile. 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 - Dulcolax supp, Colace, Milk of Mag PRN for bowel regimen. - Xarelto 10mg Q24hrs starting 05/07/2016. - Encouraged patient to use incentive spirometry. - GERD - will continue PPI. - Depression - Continue Trazodone on discharge. Likely discharge on 05/09/2016. Full code. Xarelto starting 05/07/2016. Jadon Tena DO May 08, 2016 11:56
[2016-05-08] MEDS ORDERED: MISCELLANEOUS PHARMACY INFORMATION XX ONE (12:00)
[2016-05-08] MEDS: ACETAMINOPHEN/HYDROcodone 325 MG/5 MG TAB PO PRN ×3 (12:06→21:34)
[2016-05-08] MEDS: MAGNESIUM HYDROXIDE SUSP 30 ML CUP PO PRN (16:37)
[2016-05-09] MEDS: MAGNESIUM HYDROXIDE SUSP 30 ML CUP PO PRN (02:36)
[2016-05-09] MEDS: ACETAMINOPHEN/HYDROcodone 325 MG/5 MG TAB PO PRN ×3 (02:36→11:59)
[2016-05-09] MEDS: DEXT 5%-NACL 0.45% 1000 ML INJ 1,000 ML IV SCH (03:00)
[2016-05-09 08:00] VITALS: BP 119/67; PULSE 88; RESP 16; TEMP 97.6; O2SAT 97
[2016-05-09] MEDS: RIVAROXABAN 10 MG TAB PO SCH (08:10)
[2016-05-09] MEDS: PANTOPRAZOLE SOD 20 MG DELAYED RELEASE TAB PO SCH (08:10)
[2016-05-09] MEDS: SODIUM CHLORIDE 0.9% FLUSH 5 ML FLUSH IVF SCH (08:11)
--- NOTE | 2016-05-09 09:33 | HHI.PR ---
Subjective Remarks Follow-up for right total hip arthroplasty. Ms. Noyola is doing well. No acute concerns. Sitting in her chair. Ready to go home. Objective Vitals Vital Signs Date Time Temp Pulse Resp B/P Pulse Ox O2 Delivery O2 Flow Rate FiO2 05/09/16 00:24 05/08/16 23:06 95 21 05/08/16 20:17 96.7 86 17 113/67 96 05/08/16 16:00 99.6 91 16 113/74 96 05/08/16 14:00 15 05/08/16 12:00 98.6 90 16 138/73 99 05/08/16 12:00 98.6 90 16 138/73 99 05/08/16 09:50 96 I/O 05/08/16 05/08/16 05/08/16 05/09/16 05/09/16 05/09/16 07:00 15:00 23:00 07:00 15:00 23:00 Intake Total 360 ml 480 ml 360 ml 240 ml Output Total 20 ml 4 ml Balance 340 ml 476 ml 360 ml 240 ml Intake Oral 360 ml 480 ml 360 ml 240 ml Output Urine Total 4 ml Drainage Total 20 ml # Voids 4 1 2 # Bowel Movements 0 0 0 0 Result Diagram: 05/07/16 0503 Imaging Last Impressions Hip X-Ray 05/06/16 0939 Signed Impressions: Service Date/Time: Friday, May 06, 2016 10:00 - CONCLUSION: Status post right total hip arthroplasty with prosthesis in good position. Elroy Abel MD Chest X-Ray 05/06/16 0000 Signed Impressions: Service Date/Time: Friday, May 06, 2016 05:47 - CONCLUSION: No acute disease. Compa Alvarez MD Objective Remarks GENERAL: Alert, oriented 3. No acute distress. SKIN: Warm and dry. HEAD: Normocephalic. EYES: No scleral icterus. No injection or drainage. NECK: Supple, trachea midline. No JVD or lymphadenopathy. CARDIOVASCULAR: Regular rate and rhythm without murmurs, gallops, or rubs. RESPIRATORY: Breath sounds equal bilaterally. No accessory muscle use. GASTROINTESTINAL: Abdomen soft, non-tender, nondistended. MUSCULOSKELETAL: No cyanosis, or edema. Status post right ALBINA. Able to move all toes. BACK: Nontender without obvious deformity. No CVA tenderness. Procedures Right total hip arthroplasty 05/06/2016 A/P Problem List: (1) Osteoarthritis of right hip ICD Code: M16.11 Status: Acute (2) GERD (gastroesophageal reflux disease) ICD Code: K21.9 Status: Acute (3) Depression ICD Code: F32.9 Status: Acute Assessment and Plan Ms. Noyola, 60 underwent elective right total hip arthroplasty on 05/06/2016. Patient is currently doing well. Patient is hemodynamically stable. Afebrile. 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 - Dulcolax supp, Colace, Milk of Mag PRN for bowel regimen. - Xarelto 10mg Q24hrs starting 05/07/2016. - Encouraged patient to use incentive spirometry. - GERD - will continue PPI. - Depression - Continue Trazodone on discharge. Likely discharge home on 2016. Full code. Xarelto starting 05/07/2016. Jadon Tena DO May 09, 2016 9:33 am
[2016-05-09 10:55] VITALS: O2SAT 96
--- NOTE | 2016-05-14 08:31 | MD ---
cc: ANTONIO SINGH MARK ADMISSION DATE: 05/06/2016 DISCHARGE DATE: 05/09/2016 ADMISSION DIAGNOSIS Osteoarthritis of the right hip, pain right hip, gait disturbance. DISCHARGE DIAGNOSIS Osteoarthritis of the right hip, pain right hip, gait disturbance. HISTORY A 60-year-old white female with a 1-year history of right hip pain, having noted the abrupt onset of generalized discomfort about the hip and groin area within the previous year, unrelated to injury or unusual activity. During this interval of time the patient had conformed to conservative management utilizing Advil and applying heat, neither of which had afforded her any significant improvement of her symptoms. She became progressively more symptomatic with pain that began to interfere with all weightbearing activities. She presented to the undersigned physician in May of this past year and at that time her x-ray studies revealed obvious degenerative changes with pronounced narrowing about the superior aspect of the joint for which treatment options were reviewed. At that time the patient elected to continue with conservative management. She was prescribed tramadol for pain relief and followed on outpatient basis. Additional medications included Diclofenac with the patient describing residual pain about her right hip for which she was having difficulty conforming to ambulatory activities. She returned to the office in November of this past year reporting that she had been kayaking as part of her exercise activities that aggravated her hip symptoms. At that time she was given a Kenalog injection and prescribed a Medrol Dosepak but became increasingly more symptomatic with pain thereafter. She returned the office more recently indicating that she was obviously incapacitated with regards to all forms of weightbearing activities. Her x-ray studies revealed severe degenerative changes with subtotal obliteration of the joint space. Findings and treatment options were again reviewed, the pros and cons of continuing with further conservative modalities versus proceeding with operative intervention that would involve a total hip arthroplasty were outlined in detail. Emphasis were made regarding the fact that the decision to proceed with surgery would be left entirely to the patient's discretion. She readily admitted that her symptoms had progressed to a point in time where she was ready to proceed with such treatment and in compliance with her wishes she was scheduled for admission at this time in order that total hip replacement be completed. Her physical examination at the time of admission revealed no localizing tenderness about her right hip. There was restricted mobility of the hip joint in all ranges assessed with pain at the extremes of motion. Straight-leg raising was negative at 80 degrees. Erik sign was positive. Pronounced antalgic gait. HOSPITAL COURSE Prior to admission to the hospital the patient underwent medical evaluation and clearance for surgery as completed by her primary care physician Dr. Joseph Saenz. She was taken to the operating room on May 06, 2016 and on that date underwent a right total hip arthroplasty completed in an uncomplicated manner. The patient was noted to have tolerated her operative procedure well and her postoperative course was stable thereafter. She was progressively mobilized under the guidance of physical therapy being permitted weightbearing to tolerance about the right lower extremity. Follow up examination of her surgical wound noted to be intact, healing favorably, no evidence of infection. Medical followup per the hospitalist service, DVT prophylaxis initiated. ancillary services manager therapy was consulted to assist with discharge planning. Hemoglobin/hematocrit assessment postoperatively was 11.8 and 34.9, respectively. The patient had expressed her desire to be discharged home from the hospital and continue her rehabilitation on outpatient basis. Plans were finalized in this regard and pending medical clearance she was scheduled for discharge on the third postoperative day, at which time she was noted making favorable progress with regards to her rehab program. Her condition at that time was stable and prognosis favorable. MEDICATIONS Discharge medications included: 1. Hydrocodone 5/325, #60. 2. Aspirin 325 mg one tab twice daily for 4 weeks, #60. MD GERALDO Manning/TLL /6:40 AM /8:18 AM
== END 2016-05-09 12:28 | disposition home health service (06) | DRG 470 ==
LOC: HSDI 05-06 05:13 → N06B 05-06 11:43
PROVIDERS: ADMIT Orthopaedic Surgery; ATTEND Orthopaedic Surgery
PROC: 0SR903A Replacement of Right Hip Joint with Ceramic Synthetic Substitute, Uncemented, Open Approach (ICD-10-PCS; principal; 2016-05-06 06:53)
DX: M16.11 Unilateral primary osteoarthritis, right hip (principal); Z96.642 Presence of left artificial hip joint; F32.9 Major depressive disorder, single episode, unspecified; K21.9 Gastro-esophageal reflux disease without esophagitis; Z87.891 Personal history of nicotine dependence
CPT/HCPCS: 71010; 73501; 85014; 85018; 86850; 86900; 86901; 88304; 88311; 94150; C1776; J0131; J0690; J1170; J2270; J2405; J2710; J3010; J7120